=== PATIENT | male | born 1965 | race Caucasian/White ===

== ENCOUNTER 2018-02-05 16:58 | Emergency (ER) | payer BC ==
--- NOTE | 2018-02-05 17:04 | EDPHY ---
H & P Time Seen by Provider: 02/05/18 17:04 HPI/ROS: CHIEF COMPLAINT: Throat tightness and trouble breathing HISTORY OF PRESENT ILLNESS: Patient is had 9 or 10 previous severe allergic reactions to nuts requiring epinephrine. He had a piece of sweet potato pie at 4:30 p.m. And then got severe tightness in his throat, trouble breathing, very itchy in his throat and skin. He received epinephrine and Benadryl by paramedics now feels better except as throat is still a little bit itchy. Symptoms were severe, mild now. Not better worse with anything. Last reaction was Friday, seen at [facility], before that previously 2 years ago. REVIEW OF SYSTEMS: Eye: no change in vision ENT: HPI HPI Cardiac: no chest pain or syncope Pulmonary: HPI Abdomen: A little bit of stomach upset and nausea Musculoskeletal: no back pain Skin: no rash Neuro: no headache Constitutional: no fever : no urinary symptoms A comprehensive 10 point review of systems is otherwise negative aside from elements mentioned in the history of present illness. PAST MEDICAL HISTORY: Includes asthma, not allergy, psoriasis Social history: Recently moved from [place] to [place] as he works for [employer], no local primary care physician. General Appearance: Alert and conversant, cooperative. Eyes: No scleral icterus. ENT, Mouth: Normal mucous membranes. No angioedema, but voices still a little bit whispery. Respiratory: Normal respiratory effort, breath sounds equal, lungs are clear to auscultation. No wheezing. Cardiovascular: Regular rate and rhythm. Gastrointestinal: Abdomen is soft and non tender. Neurological: Alert, face symmetric, normal motor and sensory in extremities. Skin: Warm and dry, no rashes. No urticaria. Musculoskeletal: No peripheral edema. Psychiatric: Not agitated. Emergency Department course/MDM: Additional Solu-Medrol 125 and IV antihistamines. He has a prescription for EpiPen which is currently being refilled. 1751: Doing better, uvula normal, no wheezing. Plan to discharge with antihistamines and prednisone, local primary care referral, EpiPen prescription. 1918: Feels well, no wheezing, no angioedema, stable for discharge. Constitutional: Initial Vital Signs Temperature (C) 36.5 C 02/05/18 17:04 Heart Rate 76 02/05/18 17:04 Respiratory Rate 18 02/05/18 17:04 Blood Pressure 147/91 H 02/05/18 17:04 O2 Sat (%) 94 02/05/18 17:04 O2 Delivery Mode Room Air Allergies/Adverse Reactions: all nuts but peanut/almonds/cashews Allergy (Uncoded 02/05/18 17:10) Home Medications: Medication Instructions Recorded Albuterol 02/05/18 Aspirin 81mg (*) 02/05/18 EPINEPHrine [Epipen 0.3 MG] 0.3 mg IM ONCE #2 syr 02/05/18 Epipen 0.3 MG 02/05/18 Famotidine [Pepcid] 20 mg PO BID #6 tab 02/05/18 STELARA 02/05/18 predniSONE [prednisone 20mg (RX)] 40 mg PO DAILY 3 Days tab 02/05/18 Medical Decision Making - Data Points Medications Given: Discontinued Medications Methylprednisolone Sodium Succinate (Solu-Medrol) 125 mg IVP EDNOW ONE Stop: 02/05/18 17:11 Last Admin: 02/05/18 17:19 Dose: 125 mg Ranitidine HCl (Zantac) 50 mg IVP EDNOW ONE Stop: 02/05/18 17:11 Last Admin: 02/05/18 17:19 Dose: 50 mg Departure - Departure Disposition: Home, Routine, Self-Care Clinical Impression: Acute anaphylaxis Qualifiers: Encounter type: initial encounter Qualified Code(s): T78.2XXA - Anaphylactic shock, unspecified, initial encounter Condition: Good Instructions: Anaphylaxis (ED) Referrals: Edyta Lui DO [Doctor of Osteopathy] - As per Instructions Francis Trejo MD [[facility] Primary Care Provider] - As per Instructions Prescriptions: EPINEPHrine [Epipen 0.3 MG] 0.3 mg IM ONCE #2 syr Famotidine [Pepcid] 20 mg PO BID #6 tab predniSONE [prednisone 20mg (RX)] 40 mg PO DAILY 3 Days tab
[2018-02-05] MEDS ORDERED: methylPREDNISolone SOD SUCC 125 MG/2 ML VIAL IVP ONE (17:10)
[2018-02-05] MEDS ORDERED: RANITIDINE 50 MG/2 ML VIAL IVP ONE (17:10)
[2018-02-05 19:32] VITALS: BP 136/72
== END 2018-02-05 19:31 | disposition home or self-care (01) ==
DX: T78.2XXA Anaphylactic shock, unspecified, initial encounter (principal); J45.909 Unspecified asthma, uncomplicated; Z79.82 Long term (current) use of aspirin
CPT/HCPCS: 96374; J2780; J2930

== ENCOUNTER 2018-02-06 18:26 | Observation (INO) | payer BC ==
[2018-02-06] MEDS ORDERED: EPINEPHrine 1 MG/ML INJ IM ONE (18:36)
[2018-02-06] MEDS ORDERED: RANITIDINE 50 MG/2 ML VIAL IVP ONE (18:36)
[2018-02-06] MEDS ORDERED: methylPREDNISolone SOD SUCC 125 MG/2 ML VIAL IVP ONE (18:36)
[2018-02-06] MEDS ORDERED: NS 1,000 ML IV ONE (18:36)
--- NOTE | 2018-02-06 18:36 | EDPHY ---
H & P Time Seen by Provider: 02/06/18 18:29 HPI/ROS: CHIEF COMPLAINT: Throat tightness and trouble breathing and losing his voice HISTORY OF PRESENT ILLNESS: Patient is had 9 or 10 previous severe allergic reactions to nuts requiring epinephrine. He was at [facility] this past week on Friday for another allergic reaction. Yesterday he was in the emergency department for a very similar allergic reaction. He had a piece of sweet potato pie at 4:30 p.m. And then got severe tightness in his throat, trouble breathing, very itchy in his throat and skin. He received epinephrine and Benadryl by paramedics and then got steroids and additional antihistamines and felt better in the emergency department. Discharged on prednisone and antihistamines. Patient started getting itchiness and swelling in his started 3 o'clock which resolved. At 4 o'clock today is both hands started swelling and then it went away and then at 5:45 p.m. About 45 min prior to arrival he started getting scalp itching and chest tightness and wheezing and throat tightness. Symptoms moderate, identical to previous allergic reactions. No nut ingestion today. REVIEW OF SYSTEMS: Eye: no change in vision ENT: HPI HPI Cardiac: no chest pain or syncope Pulmonary: HPI Abdomen: No vomiting Musculoskeletal: no back pain Skin: no rash or urticaria Neuro: no headache Constitutional: no fever : no urinary symptoms A comprehensive 10 point review of systems is otherwise negative aside from elements mentioned in the history of present illness. PAST MEDICAL HISTORY: Includes asthma, nut allergy, psoriasis Social history: Recently moved from [place] to [place] as he works for [employer], no local primary care physician. General Appearance: Alert and conversant, cooperative. Eyes: No scleral icterus. ENT, Mouth: Normal mucous membranes. No angioedema, but voice is a bit hoarse. Respiratory: Normal respiratory effort, breath sounds equal, slight expiratory wheezing bilaterally. Cardiovascular: Regular rate and rhythm. Gastrointestinal: Abdomen is soft and non tender. Neurological: Alert, face symmetric, normal motor and sensory in extremities. Skin: Warm and dry, no rashes. No urticaria. Musculoskeletal: No peripheral edema. Psychiatric: Not agitated. Emergency Department course/MDM: Patient presents with recurrent allergic rebound and Respiratory symptoms. Epi 0.3 IM, Solu-Medrol 125, IV antihistamines. IV fluids and CBC and chemistry. Plan for admission for observation with rebound anaphylaxis, 3rd time this week. 1858: Already feels little bit better with voice normalizing. EKG and chest x-ray. 1917: Patient feels better, chest clear to auscultation, no angioedema. Smoking Status: Never smoked Constitutional: Initial Vital Signs Temperature (C) 36.7 C 02/06/18 18:29 Heart Rate 89 02/06/18 18:29 Respiratory Rate 18 02/06/18 18:29 Blood Pressure 144/82 H 02/06/18 18:29 O2 Sat (%) 94 02/06/18 18:29 O2 Delivery Mode Room Air Allergies/Adverse Reactions: all nuts but peanut/almonds/cashews Allergy (Uncoded 02/06/18 18:29) Home Medications: Medication Instructions Recorded Famotidine [Pepcid] 20 mg PO BID #6 tab 02/05/18 predniSONE [prednisone 20mg (RX)] 40 mg PO DAILY 3 Days tab 02/05/18 Albuterol Sulfate [Ventolin Hfa] 1 - 2 puffs PO Q4H PRN 02/06/18 Aspirin EC [Aspirin EC 81 mg (*)] 81 mg PO DAILY 02/06/18 Loratadine [Claritin] 10 mg PO DAILY PRN 02/06/18 Multivitamins [Multivitamin (*)] 1 each PO DAILY 02/06/18 Medical Decision Making - Diagnostics EKG Interpretation: 12-lead EKG interpreted by me; official reading is in trace master. My interpretation is sinus rhythm rate 83 with nonspecific inferior T-wave abnormalities. Imaging Results: Imaging Impressions Chest X-Ray 02/06/18 18:53 Impression: Findings most consistent with airways disease are noted. Chest x-ray negative personally interpreted Imaging: I viewed and interpreted images myself Differential Diagnosis: Differential considered including but not limited to asthma, congestive heart failure, allergic reaction, anaphylaxis, URI. Critical Care Time: Total critical care time 30 minutes; organ system at risk is anaphylaxis with involvement of airway, ordered epinephrine, steroids, antihistamines, multiple diagnostics to stabilize. - Data Points Laboratory Results: Laboratory Results 02/06/18 18:50 02/06/18 18:50 02/06/18 02/06/18 02/06/18 18:50 18:50 18:50 WBC 24.68 10^3/uL H 10^3/uL (3.80-9.50) RBC 4.98 10^6/uL 10^6/uL (4.40-6.38) Hgb 16.0 g/dL g/dL (13.7-17.5) Hct 46.1 % % (40.0-51.0) MCV 92.6 fL fL (81.5-99.8) MCH 32.1 pg pg (27.9-34.1) MCHC 34.7 g/dL g/dL (32.4-36.7) RDW 13.0 % % (11.5-15.2) Plt Count 306 10^3/uL 10^3/uL (150-400) MPV 10.5 fL fL (8.7-11.7) Neut % (Auto) 86.4 % H % (39.3-74.2) Lymph % (Auto) 6.0 % L % (15.0-45.0) [place] % (Auto) 6.2 % % (4.5-13.0) Eos % (Auto) 0.1 % L % (0.6-7.6) Baso % (Auto) 0.2 % L % (0.3-1.7) Nucleat RBC Rel Count 0.0 % % (0.0-0.2) Absolute Neuts (auto) 21.32 10^3/uL H 10^3/uL (1.70-6.50) Absolute Lymphs (auto) 1.48 10^3/uL 10^3/uL (1.00-3.00) Absolute Monos (auto) 1.53 10^3/uL H 10^3/uL (0.30-0.80) Absolute Eos (auto) 0.02 10^3/uL L 10^3/uL (0.03-0.40) Absolute Basos (auto) 0.05 10^3/uL 10^3/uL (0.02-0.10) Absolute Nucleated RBC 0.00 10^3/uL 10^3/uL (0-0.01) Immature Gran % 1.1 % % (0.0-1.1) Immature Gran # 0.27 10^3/uL H 10^3/uL (0.00-0.10) RBC/WBC/PLT Morphology TNP Platelet Estimate TNP Sodium 137 mEq/L mEq/L (135-145) Potassium 4.2 mEq/L mEq/L (3.3-5.0) Chloride 106 mEq/L mEq/L (97-110) Carbon Dioxide 23 mEq/l mEq/l (22-31) Anion Gap 8 mEq/L mEq/L (8-16) BUN 21 mg/dL mg/dL (7-23) Creatinine 0.9 mg/dL mg/dL (0.7-1.3) Estimated GFR > 60 Glucose 109 mg/dL H mg/dL (70-100) Calcium 10.0 mg/dL mg/dL (8.5-10.4) Troponin I < 0.012 ng/mL ng/mL (0.000-0.034) Medications Given: Famotidine/Sodium Chloride (Pepcid 20 Mg (Premix)) 50 mls @ 200 mls/hr IV Q12HRS CALI Stop: 08/05/18 20:59 Last Admin: 02/06/18 22:06 Dose: 50 mls Discontinued Medications Diphenhydramine HCl (Benadryl Injection) 50 mg IVP EDNOW ONE Stop: 02/06/18 18:37 Last Admin: 02/06/18 18:43 Dose: 50 mg Epinephrine HCl (Epinephrine) 0.3 mg IM EDNOW ONE Stop: 02/06/18 18:37 Last Admin: 02/06/18 18:43 Dose: 0.3 mg Sodium Chloride (Ns) 1,000 mls @ 0 mls/hr IV ONCE ONE; Wide Open PRN Reason: Protocol Stop: 02/06/18 18:37 Last Admin: 02/06/18 18:42 Dose: 1,000 mls Methylprednisolone Sodium Succinate (Solu-Medrol) 125 mg IVP EDNOW ONE Stop: 02/06/18 18:37 Last Admin: 02/06/18 18:43 Dose: 125 mg Ranitidine HCl (Zantac) 50 mg IVP EDNOW ONE Stop: 02/06/18 18:37 Last Admin: 02/06/18 18:43 Dose: 50 mg Departure - Departure Disposition: [facility] Acute Clinical Impression: Acute anaphylaxis Qualifiers: Encounter type: subsequent encounter Qualified Code(s): T78.2XXD - Anaphylactic shock, unspecified, subsequent encounter Condition: Good
[2018-02-06 19:07] LABS: PLATELET COUNT 306 10^3/uL (150-400)
--- NOTE | 2018-02-06 19:11 | CPEKG ---
Heart Rate: 83 RR Interval: 723 P-R Interval: 148 QRSD Interval: 90 QT Interval: 392 QTC Interval: 461 P [place]: 65 QRS [place]: 22 T Wave [place]: -20 EKG Severity - BORDERLINE ECG - EKG Impression: SINUS RHYTHM EKG Impression: BORDERLINE T ABNORMALITIES, INFERIOR LEADS Electronically Signed By: Xavier Valentine 06-Feb-2018 19:12:58
[2018-02-06] MEDS ORDERED: ACETAMINOPHEN 325 MG TAB PO PRN (20:19)
[2018-02-06] MEDS ORDERED: ONDANSETRON 4 MG/2 ML VIAL IVP PRN (20:19)
[2018-02-06] MEDS ORDERED: ONDANSETRON DISINTEGRATING 4 MG TAB PO PRN (20:19)
--- NOTE | 2018-02-06 21:39 | GHP ---
[f rep st] HISTORY AND PHYSICAL DATE OF ADMISSION: 02/06/2018 CHIEF COMPLAINT: Anaphylactic reaction. HISTORY OF PRESENT ILLNESS: A 52-year-old male with allergy to nuts, presenting with allergic anaphylactic reaction. He had a reaction to nuts at a restaurant in [place] on Friday and went to [facility]. He received epinephrine and steroids at that time. He was doing well until yesterday when he had pie at work which likely had walnuts and developed severe tightness in his throat, difficulty breathing. He received epi and Benadryl by paramedics. He was brought to [facility] ER, was discharged home with an antihistamine and prednisone. He did really much today, and developed an itchy throat at 3 p.m. This progressed to hand swelling, red face, and hives. He felt pressure in his chest as though someone was hugging him tightly. He was dosed epinephrine and Solu-Medrol, H2 kunal in the ED. During my interview, he denies shortness of breath, wheezing, difficulty breathing. REVIEW OF SYSTEMS: I completed a 10-point review of systems, negative except as noted in HPI. PAST MEDICAL HISTORY: Anaphylactic reaction to nuts, asthma. PAST SURGICAL HISTORY: Bilateral inguinal hernia, ventral hernia. SOCIAL HISTORY: He lives in [place] with his . Drinks occasional alcohol. No tobacco or illicits. FAMILY HISTORY: Father had asthma, [place], aortic valve repair. Mother with colon cancer. HOME MEDICATIONS: Multivitamin, loratadine, albuterol, aspirin, prednisone 40 mg daily, famotidine 20 mg b.i.d. ALLERGIES: All nuts. PHYSICAL EXAMINATION: VITAL SIGNS: Temperature 36.7, blood pressure of 123/67 , heart rate is 85, respirations 18, 92% on room air. GENERAL: Overweight male , sitting in bed in no acute distress. HEENT: PERRLA. Moist mucous membranes. Oropharynx clear, no swelling or erythema. CV: Regular rate and rhythm. LUNGS: Clear. No wheezing or crackles. ABDOMEN: Soft, nontender, nondistended. Positive bowel sounds. : No [place]. MUSCULOSKELETAL: 5/5 upper and lower extremity strength. NEURO: 2 through 12 intact. PSYCH: Alert and oriented x3. SKIN: Mild erythema over neck. No hives. LABORATORIES: WBC is 24, hemoglobin 16, hematocrit 46, platelets 306. Sodium 137, potassium 4.2, chloride 106, carbon dioxide 23, creatinine 0.9, glucose 109 , calcium 10. Troponin less than 0.012. EKG is personally reviewed by me, normal sinus rhythm. Chest x-ray is personally reviewed, no opacity or effusion. ASSESSMENT AND PLAN: 1. Anaphylactic reaction: this is third episode this week. He received epinephrine and Solu-Medrol in the emergency room. He is currently hemodynamically stable without symptoms. We will monitor overnight, provide H2 kunal, steroids in the morning. 2. Leukocytosis: Stress reaction and steroids. Denies any infectious symptoms. 3. Asthma: Can resume home inhalers. 4. Diet: Regular. 5. Deep venous thrombosis prophylaxis with Lovenox. 6. Disposition: Patient warrants observation admission given acute anaphylaxis , warranting pulse oximetry, ICU monitoring. Can likely discharge in the morning. /[id number]/MODL MTDD
[2018-02-06] MEDS: FAMOTIDINE 20 MG/NACL 50 ML IV SCH (22:06)
[2018-02-07] MEDS ORDERED: CETIRIZINE 10 MG TAB PO SCH (09:00)
[2018-02-07] MEDS ORDERED: ENOXAPARIN 40 MG/0.4 ML SYR SC SCH (09:00)
[2018-02-07] MEDS ORDERED: MULTIVITAMINS 1 EACH TAB PO SCH (09:00)
[2018-02-07] MEDS ORDERED: ASPIRIN EC 81 MG TAB PO SCH (09:00)
[2018-02-07] MEDS ORDERED: NS 1,000 ML IV SCH (09:30)
[2018-02-07 09:47] LABS: PLATELET COUNT 277 10^3/uL (150-400)
--- NOTE | 2018-02-07 10:06 | ASMTCMCOM ---
CM Note CM Note Notes: Pt in for third episode of anaphylaxis this week, nut allergy. No therapies ordered. Pt has , has yet to establish PCP in [place]. Anticipate pt will d/c when medically stable. No CM d/c needs identified. CM available for changes/needs. Date Signed: 02/07/2018 10:05 AM Electronically Signed By:SANIA Dunbar
[2018-02-07] MEDS: FAMOTIDINE 20 MG/NACL 50 ML IV SCH (10:09)
[2018-02-07] MEDS ORDERED: predniSONE 20 MG TAB PO ONE ×2 (11:34→12:00)
[2018-02-07 13:02] VITALS: BP 130/72
--- NOTE | 2018-02-07 14:10 | PDDCSUM ---
Discharge Summary Discharge Summary: The patient is a 52 yo male with hx of allergy to peanut who was admitted with anaphylaxis. He was treated and managed. Kept in the SDU overnight. He is at baseline this morning and requesting discharge. He has Epi pens available. He will finish his prednisone course. He will f/u with his PCP in one week DDX: -Anaphylaxis -Leukocytosis -Hx of asthma, on RA -transient hypotension, now resolved Exam: NAD AAOX3 RRR CTA B S/NT/ND NO LE EDMEA MEDS: SEE MED REC. NO NEW MEDS STARTED F/U: PER ABOVE TOTAL TIME SPENT ON D/C IS 35 MINS
== END 2018-02-07 13:33 | disposition home or self-care (01) ==
LOC: F2N 22:28
PROVIDERS: ADMIT Internal Medicine; ATTEND Internal Medicine
DX: T78.01XA Anaphylactic reaction due to peanuts, initial encounter (principal); D72.829 Elevated white blood cell count, unspecified; J45.909 Unspecified asthma, uncomplicated; L40.9 Psoriasis, unspecified; Z91.010 Allergy to peanuts
CPT/HCPCS: 71046; 93005; 96361; 96372; 96374; 96375; 99291; G0378; J0171; J1200; J1650; J2780; J2930; J7512

== ENCOUNTER 2018-02-09 13:03 | Emergency (ER) | payer BC ==
--- NOTE | 2018-02-09 13:19 | CPEKG ---
Heart Rate: 79 RR Interval: 759 P-R Interval: 160 QRSD Interval: 92 QT Interval: 364 QTC Interval: 418 P [place]: 57 QRS [place]: 33 T Wave [place]: -24 EKG Severity - ABNORMAL ECG - EKG Impression: SINUS RHYTHM EKG Impression: PROBABLE LEFT ATRIAL ABNORMALITY EKG Impression: NONSPECIFIC T ABNORMALITIES, INFERIOR LEADS EKG Impression: Similar to previous Electronically Signed By: Anant Martinez 09-Feb-2018 13:21:02
--- NOTE | 2018-02-09 13:21 | EDPHY ---
H & P Stated Complaint: seen thur to sat for allergic reaction/throat itchy/chest tight/helped with Time Seen by Provider: 02/09/18 13:16 HPI/ROS: CHIEF COMPLAINT: Allergic reaction HISTORY OF PRESENT ILLNESS: The patient is a 52-year-old man with a history of nut allergies. He had chestnuts on . He came to the ER and was treated with Solu-Medrol, epinephrine and Benadryl. His symptoms improved and he was discharged. He returned on Friday with a return of his symptoms. He was admitted overnight. On Friday he was feeling better and was discharged. He finished his steroid course yesterday. He continued to feel well Friday. Today at work he began having a raspy voice again. He states that his lips feel tingly. No obvious swelling. No wheezing or shortness of breath he. He does complain of some chest tightness which is typical of his allergic reactions. He has had multiple reactions similar to this. No nausea vomiting or GI symptoms. No rash. No fever. REVIEW OF SYSTEMS: Constitutional: denies: chills, fever, recent illness, recent injury EENTM: See HPI denies: blurred vision, double vision, nose congestion Respiratory: See HPI denies: cough, shortness of breath Cardiac: denies: chest pain, irregular heart rate, lightheadedness, palpitations Gastrointestinal/Abdominal: denies: abdominal pain, diarrhea, nausea, vomiting, blood streaked stools Genitourinary: denies: dysuria, frequency, hematuria, pain Musculoskeletal: denies: joint pain, muscle pain Skin: denies: lesions, rash, jaundice, bruising Neurological: denies: headache, numbness, paresthesia, tingling, dizziness, weakness Hematologic/Lymphatic: denies: blood clots, easy bleeding, easy bruising Immunologic/allergic: denies: HIV/AIDS, transplant EXAM: GENERAL: Well-appearing, moderate distress, last voice. HEAD: Atraumatic, normocephalic. EYES: Pupils equal round and reactive to light, extraocular movements intact, sclera anicteric, conjunctiva are normal. ENT: No obvious swelling and pharynx her lips. TMs normal, nares patent, oropharynx clear without exudates. Moist mucous membranes. NECK: Normal range of motion, supple without lymphadenopathy or JVD. LUNGS: Breath sounds clear to auscultation bilaterally and equal. No wheezes rales or rhonchi. HEART: Regular rate and rhythm without murmurs, rubs or gallops. ABDOMEN: Soft, nontender, normoactive bowel sounds. No guarding, no rebound. No masses appreciated. BACK: No CVA tenderness, no spinal tenderness, step-offs or deformities EXTREMITIES: Normal range of motion, no pitting or edema. No clubbing or cyanosis. NEUROLOGICAL: Cranial nerves II through XII grossly intact. Normal speech, normal gait. 5/5 strength, normal movement in all extremities, normal sensation PSYCH: Normal mood, normal affect. SKIN: Warm, dry, normal turgor, no visible rashes or lesions. Source: Patient Exam Limitations: No limitations - Personal History Current Tetanus Diphtheria and Acellular Pertussis (TDAP): Yes - Medical/Surgical History Hx Asthma: Yes Hx Chronic Respiratory Disease: No Hx Diabetes: No Hx Cardiac Disease: No Hx Renal Disease: No Hx Cirrhosis: No Hx Alcoholism: No Hx HIV/AIDS: No Hx Splenectomy or Spleen Trauma: No Other PMH: asthma, psoriasis - Family History Significant Family History: No pertinent family hx - Social History Smoking Status: Never smoked Alcohol Use: Sober Drug Use: None Constitutional: Initial Vital Signs Temperature (C) 36.4 C 02/09/18 13:04 Heart Rate 88 02/09/18 13:04 Respiratory Rate 18 02/09/18 13:04 Blood Pressure 153/100 H 02/09/18 13:04 O2 Sat (%) 95 02/09/18 13:04 O2 Delivery Mode Room Air Allergies/Adverse Reactions: nuts except for peanuts. Allergy (Uncoded 02/09/18 15:15) Home Medications: Medication Instructions Recorded Famotidine [Pepcid 20 MG (*)] 20 mg PO BID #6 tab 02/05/18 predniSONE 40 mg PO DAILY 3 Days tab 02/05/18 Albuterol Sulfate [Ventolin Hfa] 1 - 2 puffs PO Q4H PRN 02/06/18 Aspirin EC [Aspirin EC 81 mg (*)] 81 mg PO DAILY 02/06/18 Loratadine [Claritin] 10 mg PO DAILY PRN 02/06/18 Multivitamins [Multivitamin (*)] 1 each PO DAILY 02/06/18 methylPREDNISolone [Medrol Dose 1 each PO AD #1 ea 02/09/18 Carlos Eduardo] Medical Decision Making - Diagnostics EKG Interpretation: An EKG obtained and was read and documented in trace view. Please see trace view for full reading and report. Sinus rhythm, nonspecific T-wave inversions inferiorly similar previous ED Course/Re-evaluation: 3:05 p.m. the patient is feeling completely better. We will continue to observe. Will likely need to place him on on a longer steroid taper. 4:10 p.m. the patient continues to feel well. He states that he is 99% better. He is eager to go home. I will treat him with a Medrol Dosepak. He states the prednisone makes him feel nauseous. We also discussed following up with an interventional physician for repeat testing which is not been done since 2005. Differential Diagnosis: Partial list of the Differential diagnosis considered include but were not limited to; allergic reaction, anxiety, anaphylaxis and although unlikely based on the history and physical exam, I also considered infection, pneumonia, asthma. I discussed these differential diagnoses and the plan with the patient as well as the usual and expected course. The patient understands that the diagnosis is provisional and that in medicine we are not always correct and that further workup is often warranted. Usual and customary warnings were given. All of the patient's questions were answered. The patient was instructed to return to the emergency department should the symptoms at all worsen or return, otherwise to followup with the physician as we discussed. - Data Points Laboratory Results: Laboratory Results 02/09/18 13:25 02/09/18 13:25 02/09/18 02/09/18 02/09/18 13:32 13:25 13:25 WBC 13.86 10^3/uL H 10^3/uL (3.80-9.50) RBC 5.00 10^6/uL 10^6/uL (4.40-6.38) Hgb 16.0 g/dL g/dL (13.7-17.5) Hct 45.9 % % (40.0-51.0) MCV 91.8 fL fL (81.5-99.8) MCH 32.0 pg pg (27.9-34.1) MCHC 34.9 g/dL g/dL (32.4-36.7) RDW 12.9 % % (11.5-15.2) Plt Count 280 10^3/uL 10^3/uL (150-400) MPV 10.4 fL fL (8.7-11.7) Neut % (Auto) Not Reported Lymph % (Auto) Not Reported Gates % (Auto) Not Reported Eos % (Auto) Not Reported Baso % (Auto) Not Reported Nucleat RBC Rel Count Not Reported Absolute Neuts (auto) Not Reported Absolute Lymphs (auto) Not Reported Absolute Monos (auto) Not Reported Absolute Eos (auto) Not Reported Absolute Basos (auto) Not Reported Absolute Nucleated RBC Not Reported Immature Gran % Not Reported Seg Neutrophils % 62.6 % % Band Neutrophils % 0 % % Lymphocytes % 31.3 % % Monocytes % 3.1 % % Eosinophils % 1.0 % % Basophils % 0 % % Metamyelocytes % 0 % % Myelocytes % 2.0 % % Promyelocytes % 0 % % Blast Cells % 0 % % Immature Gran # Not Reported Absolute Seg Neuts 8.68 10^/uL H 10^/uL (1.70-6.50) Absolute Band Neuts 0.00 10^3/uL 10^3/uL (0.00-0.70) Absolute Lymphocytes 4.34 10^3/uL H 10^3/uL (1.00-3.00) Absolute Monocytes 0.43 10^3/uL 10^3/uL (0.30-0.80) Absolute Eosinophils 0.14 10^3/uL 10^3/uL (0.03-0.40) Absolute Basophils 0.00 10^3/uL L 10^3/uL (0.02-0.10) Absolute Metamyelocyte 0.00 10^3/mL 10^3/mL (0.00-0.00) Absolute Myelocytes 0.28 10^3/mL H 10^3/mL (0.00-0.00) Absolute Promyelocytes 0.00 10^3/uL 10^3/uL (0.00-0.00) Absolute Plasma Cells 0.00 10^3/uL 10^3/uL (0.00-0.00) RBC/WBC/PLT Morphology NORMAL (NORMAL) Absolute Blast Cells 0.00 10^3/uL 10^3/uL (0.00-0.00) Plasma Cells % 0 % % Platelet Estimate ADEQUATE (ADEQ) Sodium 143 mEq/L mEq/L (135-145) Potassium 3.6 mEq/L mEq/L (3.3-5.0) Chloride 105 mEq/L mEq/L (97-110) Carbon Dioxide 25 mEq/l mEq/l (22-31) Anion Gap 13 mEq/L mEq/L (8-16) BUN 20 mg/dL mg/dL (7-23) Creatinine 1.1 mg/dL mg/dL (0.7-1.3) Estimated GFR > 60 Glucose 90 mg/dL mg/dL (70-100) Calcium 9.6 mg/dL mg/dL (8.5-10.4) POC Troponin I 0.01 ng/mL ng/mL (0.00-0.08) Medications Given: Discontinued Medications Diphenhydramine HCl (Benadryl Injection) 50 mg IVP EDNOW ONE Stop: 02/09/18 13:26 Last Admin: 02/09/18 13:37 Dose: 50 mg Epinephrine HCl (Epinephrine) 0.3 mg IM EDNOW ONE Stop: 02/09/18 13:26 Last Admin: 02/09/18 13:35 Dose: 0.3 mg Sodium Chloride (Ns) 1,000 mls @ 0 mls/hr IV ONCE ONE; Wide Open PRN Reason: Protocol Stop: 02/09/18 13:26 Last Admin: 02/09/18 13:37 Dose: 1,000 mls Methylprednisolone Sodium Succinate (Solu-Medrol) 125 mg IVP EDNOW ONE Stop: 02/09/18 13:26 Last Admin: 02/09/18 13:36 Dose: 125 mg Ranitidine HCl (Zantac) 50 mg IVP EDNOW ONE Stop: 02/09/18 13:26 Last Admin: 02/09/18 13:37 Dose: 50 mg Point of Care Test Results: Chemistry 02/09/18 13:32 POC Troponin I 0.01 ng/mL ng/mL (0.00-0.08) Departure - Departure Disposition: Home, Routine, Self-Care Clinical Impression: Allergic reaction Qualifiers: Encounter type: initial encounter Qualified Code(s): T78.40XA - Allergy, unspecified, initial encounter Condition: Fair Instructions: Anaphylaxis (ED) Referrals: NONE *PRIMARY CARE P,. [Primary Care Provider] - As per Instructions Jesika Thrasher MD [[facility] Primary Care Provider] - As per Instructions Francis Trejo MD [[facility] Primary Care Provider] - As per Instructions Prescriptions: methylPREDNISolone [Medrol Dose Carlos Eduardo] 1 each PO AD #1 ea
[2018-02-09] MEDS ORDERED: RANITIDINE 50 MG/2 ML VIAL IVP ONE (13:25)
[2018-02-09] MEDS ORDERED: methylPREDNISolone SOD SUCC 125 MG/2 ML VIAL IVP ONE (13:25)
[2018-02-09] MEDS ORDERED: EPINEPHrine 1 MG/ML INJ IM ONE (13:25)
[2018-02-09] MEDS ORDERED: NS 1,000 ML IV ONE (13:25)
[2018-02-09 13:41] LABS: PLATELET COUNT 280 10^3/uL (150-400)
[2018-02-09 15:25] VITALS: BP 125/75
== END 2018-02-09 16:20 | disposition home or self-care (01) ==
DX: T78.40XA Allergy, unspecified, initial encounter (principal); J45.909 Unspecified asthma, uncomplicated; E86.9 Volume depletion, unspecified; Z79.82 Long term (current) use of aspirin
CPT/HCPCS: 84484-PO; 96374; J0171; J1200; J2780; J2930

== ENCOUNTER 2018-07-30 15:57 | Emergency (ER) | payer BC ==
--- NOTE | 2018-07-30 16:08 | EDPHY ---
H & P Time Seen by Provider: 07/30/18 16:02 HPI/ROS: Chief complaint. Allergic reaction HPI. Patient is a 53-year-old male presents emergency department by EMS with allergic reaction. He has a known not allergy and was exposed to nuts in food today in inverted only. Exposure occurred about 45 min prior to arrival. He self administered an EpiPen. He had tongue swelling, hoarseness, generalized itchiness and shortness of breath. EMS gave the patient IV Benadryl and Solu- Medrol as well as Zofran. Patient feeling somewhat better. He has had similar symptoms previously ROS 10 systems were reviewed and negative with the exception of the elements mentioned in the history of present illness Past Medical/Surgical History: Asthma, psoriasis Social History: , nonsmoker, no alcohol Smoking Status: Never smoked Physical Exam: General Appearance: Alert well-developed male moderate distress vital signs are stable Eyes: Pupils equal and round no pallor or injection. ENT, pharynx mildly injected without exudate. Voice is somewhat hoarse Respiratory: There are no retractions, lungs are clear to auscultation. Cardiovascular: Regular rate and rhythm. Gastrointestinal: Abdomen is soft and nontender, no masses, bowel sounds normal. Neurological: Awake and alert, sensory and motor exams grossly normal. Skin: Warm and dry, no rashes. Musculoskeletal: Neck is supple nontender. Extremities symmetrical, full range of motion. Psychiatric: Patient is oriented X 3, there is no agitation. Constitutional: Initial Vital Signs Temperature (C) 36.6 C 07/30/18 16:01 Heart Rate 73 07/30/18 16:01 Respiratory Rate 18 07/30/18 16:01 Blood Pressure 134/78 H 07/30/18 16:01 O2 Sat (%) 93 07/30/18 16:01 O2 Delivery Mode Nasal Cannula O2 (L/minute) 2 Allergies/Adverse Reactions: nuts except for peanuts. Allergy (Uncoded 02/23/18 22:44) Home Medications: Medication Instructions Recorded Albuterol Sulfate 07/30/18 EPINEPHrine [Epipen 0.3 MG] 0.3 mg IM ONCE #2 syr 07/30/18 Epinephrine 07/30/18 STELARA 07/30/18 predniSONE 40 mg PO DAILY #4 tablet 07/30/18 Medical Decision Making Procedures: Monitor ED Course/Re-evaluation: Re-evaluation at 5:10 p.m.. Patient is stable. His symptoms have resolved. He feels comfortable on discharge. Patient and I discussed treatment plan including criteria for return importance of follow-up and further evaluation. He expresses understanding and agreement Differential Diagnosis: Acute allergic reaction. Considered anaphylaxis and respiratory distress Departure - Departure Disposition: Home, Routine, Self-Care Clinical Impression: Allergic reaction Qualifiers: Encounter type: initial encounter Qualified Code(s): T78.40XA - Allergy, unspecified, initial encounter Condition: Good Instructions: General Allergic Reaction (ED) Additional Instructions: Take prednisone 40 mg each day next 2 days May use Benadryl in addition if necessary Return for worsening symptoms Referrals: Francis Trejo MD [Primary Care Provider] - 2-3 days, if not improved Prescriptions: EPINEPHrine [Epipen 0.3 MG] 0.3 mg IM ONCE #2 syr predniSONE 40 mg PO DAILY #4 tablet
[2018-07-30 17:20] VITALS: BP 133/85
== END 2018-07-30 17:29 | disposition home or self-care (01) ==
LOC: EDUNIT#
DX: T78.01XA Anaphylactic reaction due to peanuts, initial encounter (principal); J45.909 Unspecified asthma, uncomplicated; L40.9 Psoriasis, unspecified